=== PATIENT | female | born 1955 | race African-American/Black ===

== ENCOUNTER 2022-03-08 12:36 | Emergency (ER) | payer MEDICARE, OTHER ==
[~2022-03-08] VITALS: Ht 157.5 cm; Wt 52.0 kg
[2022-03-08 12:38] VITALS: BP 127/68
== END 2022-03-08 12:56 | disposition left against medical advice (07) ==
LOC: ER 12:36
DX: Z53.21 Procedure and treatment not carried out due to patient leaving prior to being seen by health care provider (principal)
CPT/HCPCS: 99283